=== PATIENT | male | born 1955 | race Caucasian/White ===

== ENCOUNTER 2019-12-30 22:24 | Emergency (ER) | payer BC ==
[~2019-12-30 22:24] MED LIST: Iopamidol-370 76% 500 ML 1 ML ONE
[2019-12-30] MEDS ORDERED: Ondansetron PF 4 MG/2 ML Vial ONE (22:52)
[2019-12-30 23:28] LABS: #Eosinphils 0.1 thou/uL (0.0-0.7); #Lymphocytes 1.4 thou/uL (1.20-3.40); #Monocytes 0.5 thou/uL (0.11-0.59); #Neutrophils 10.7 thou/uL (1.40-6.50); %Basophils 0.4 % (0.0-1.0); %Eosinophils 0.6 % (0.0-10.0); %Lymphocytes 10.7 % (21.0-51.0); %Neutrophils 84.3 % (42.0-75.0); Hemoglobin 15.6 g/dL (14.0-18.0); Mean Corpuscular HGB CONC 33.2 g/dL (32.0-36.0); Mean Corpuscular Volume 90.4 fL (78.0-98.0); Mean Platelet Volume 7.1 fL (7.4-10.4); Platelet Count 269 thou/uL (130-400); RBC Distribution Width 11.6 % (11.5-14.5); Red Blood Cell (RBC) Count 5.18 mill/uL (4.70-6.10); White Blood Cell (WBC) Count 12.7 thou/uL (4.8-10.8)
[2019-12-30 23:53] LABS: ALT (SGPT) 42 U/L (8-55); AST (SGOT) 23 U/L (5-34); Albumin 4.7 g/dL (3.4-4.8); Alkaline Phosphatase 78 U/L (40-110); Anion Gap 12 mmol/L (10-20); BUN (Urea Nitrogen) 14 mg/dL (8.4-25.7); Bilirubin, Total 0.4 mg/dL (0.2-1.2); Calc. Creatinine Clearance 0 mL/min (70-130); Calcium 9.2 mg/dL (7.8-10.44); Carbon Dioxide 29 mmol/L (23-31); Chloride 100 mmol/L (98-107); Estimated GFR-MDRD Greater than 90; Globulin 2.5 g/dL (2.4-3.5); Glucose 153 mg/dL (80-115); Lipase 36 U/L (8-78); Magnesium 2.1 mg/dL (1.6-2.6); Potassium 3.4 mmol/L (3.5-5.1); Protein, Total 7.2 g/dL (5.8-8.1); Sodium 138 mmol/L (136-145)
[2019-12-31 00:40] LABS: Bilirubin Negative (Negative); Blood, Urine Negative (Negative); Clarity Clear (Clear); Glucose, Urine (Dipstick) Normal (Negative); Leukocyte Negative Leu/uL (Negative); Nitrite Negative (Negative); Protein, Urine (Dipstick) Negative (Neg-Trace); Urobilinogen Normal mg/dL (Less than 2)
--- NOTE | 2019-12-31 10:09 | CT ---
PRELIMINARY REPORT/[facility]/AFTER HOURS PROCEDURE CT ABDOMEN AND PELVIS WITH INTRAVENOUS CONTRAST: CLINICAL HISTORY: ER 24. M 64 presents to ER with c/o of nausea, diarrhea, and lower abd pain. Pt reports taking Imodiu m for the cramping tonight and that cramping has continued to be painful. Pt reports that he feels th e urge to go to the bathroom but passes little amounts of loose stool when he attempts. Pt reports th at he has been nauseated this week. TECHNIQUE: Axial computed tomography images of the abdomen and pelvis with intravenous contrast. Coronal and sa gittal reformatted images are provided. CONTRAST: With Isovue-370 95 mL IV. No oral contrast. COMPARISON: None provided. FINDINGS: LUNG BASES: No basilar airspace consolidation or pleural effusion. LIVER: Unremarkable. GALLBLADDER AND BILE DUCTS: Unremarkable. No calcified stone. No ductal dilation. PANCREAS: Unremarkable. SPLEEN: Unremarkable. ADRENAL GLANDS: Unremarkable. KIDNEYS, URETERS, AND BLADDER: No renal stones or hydronephrosis. Subcentimeter low-density lesion at the lower pole both kidneys which are too small to characterize and may represent simple cysts. No e nhancing masses. 10 mm right posterior bladder diverticulum. STOMACH AND BOWEL: Inflammation involving a loop of sigmoid colon where there are multiple diverticul a. No evidence of free air, free fluid or abscess. No evidence of bowel obstruction. APPENDIX: No CT evidence for appendicitis. PERITONEUM: No free fluid. No free air. LYMPH NODES: No lymphadenopathy. REPRODUCTIVE: Prostate enlargement. VASCULATURE: No aortic aneurysm. BONES: Mild degenerative changes of the spine and hips. No acute fractures or worrisome osseous lesio ns. ABDOMINAL WALL AND SOFT TISSUES: Small fat-containing inguinal hernias and small fat-containing umbil ical hernia. IMPRESSION: Diverticulosis with inflammatory change of the sigmoid colon concerning for acute diverticulitis. No evidence of jaimie perforation or abscess. ELECTRONICALLY SIGNED BY: Zeyad Myles M.D. Dec 31, 2019 12:17:50 AM [employer] This report is intended for review by the ordering physician only, in accordance of law. If you recei ve this report in error, please call [facility] at [phone]. FINAL REPORT EMERGENT AFTER HOURS CT ABDOMEN AND PELVIS WITH CONTRAST: 12/31/2019 12:04 a.m. No significant acute process in the abdomen or pelvis. Xxu-[id number]-characterize renal hypodensities. Probable very small right sided bladder diverticulum. This report is in agreement with the preliminary report. CODE QA POS: SJLuis Armando
== END 2019-12-31 01:06 | disposition home or self-care (01) ==
LOC: ERS 22:24
DX: K57.32 Diverticulitis of large intestine without perforation or abscess without bleeding (principal); K59.00 Constipation, unspecified; I10 Essential (primary) hypertension; E78.5 Hyperlipidemia, unspecified; Z79.899 Other long term (current) drug therapy
CPT/HCPCS: 74177; 80053; 81003; 83690; 83735; 85025; 96361; 96372; 96374; J0500; J2405; Q9967

== ENCOUNTER 2021-09-09 08:00 | Outpatient (CLI) | payer MEDICARE | END 2021-09-09 08:01 | disposition home or self-care (01) | LOC: BICMRI 08:00 | PROVIDERS: ATTEND Nurse Practitioner Acute Care | DX: M51.16 Intervertebral disc disorders with radiculopathy, lumbar region (principal); M51.17 Intervertebral disc disorders with radiculopathy, lumbosacral region; M48.061 Spinal stenosis, lumbar region without neurogenic claudication; M25.78 Osteophyte, vertebrae | CPT/HCPCS: 72148 ==